=== PATIENT | male | born 1955 | race Caucasian/White ===

== ENCOUNTER 2019-03-15 14:44 | Emergency (ER) | payer BC, OTHER ==
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
[2019-03-15] MEDS ORDERED: Acetaminophen/HYDROcodone 325-5 MG Tab PO ONE (15:10)
--- NOTE | 2019-03-15 16:28 | CR ---
HISTORY: Back pain. COMPARISON: None. FINDINGS: Three views of the lumbar spine. Moderate multilevel degenerative disc changes in the lumbar spine. Most notably at L5-S1 with disc space narrowing and endplate sclerosis. Small anterior and posterior osteophytes are present. No evidence for acute fracture. Dictated by Reena Galeana MD @ Mar 15 2019 4:25PM Signed by Dr. Reena Galeana @ Mar 15 2019 4:26PM
== END 2019-03-15 16:42 | disposition home or self-care (01) ==
LOC: MW.ED 14:44
DX: M54.5 Low back pain (principal); Z91.09 Other allergy status, other than to drugs and biological substances; Z79.899 Other long term (current) drug therapy
CPT/HCPCS: 72100; 99283; A9270